=== PATIENT | female | born 1965 | race African-American/Black ===

== ENCOUNTER 2016-12-23 18:12 | Observation (INO) | payer OTHER ==
--- NOTE | 2016-12-23 18:31 | ED ---
Chest Pain HPI - General Stated Complaint: chest pain Time Seen by Provider: 12/23/16 18:26 - History of Present Illness Initial Comments: The patient is a 51-year-old female who presents to ED with a chief complaint of chest pain. Patient states that her symptoms began last night. She states that her pain was located in the left upper chest and radiated up the left side of her neck to the left jaw. Patient states that she has also had pain that radiated down the left shoulder. She states that she took 2 aspirin 325 mg tablets last night. This helped to improve her pain. Patient also took one of her blood pressure medications last night. The patient woke up in the middle of the night secondary to pain. She took another blood pressure medication and went to sleep. This morning, the patient was awoken again by her pain and decided that it was probably time to come to the emergency department for further evaluation. Patient denies any cough, fever, chills. Patient does state that the pain is worse when she takes deep breath. Patient also remarks that she has had pain in the bilateral upper thighs., Particularly in the left upper thighs. Patient has cardiac risk factors of hypertension. Patient has never had any cardiac history in the past. Patient has no history of PE or DVT. She does have an underlying history of sarcoidosis. HEART Score=4 (2 for suspicion, 1 for age, 1 for risk factors). - Related Data Home Medications Medication Instructions Recorded Confirmed ARIPiprazole [Abilify] 15 mg PO DAILY 08/25/15 12/23/16 Multivitamins, Thera [Theragran] 1 tab PO DAILY 08/25/15 12/23/16 amLODIPine BESYLATE [Norvasc] 10 mg PO DAILY 08/25/15 12/23/16 busPIRone HCL 15 mg PO BID 08/25/15 12/23/16 Acetaminophen Tab [Tylenol Tab] 650 mg PO Q6H PRN 12/23/16 12/23/16 Dextroamphetamine/Amphetamine 15 mg PO HS 12/23/16 12/23/16 [Adderall Xr] Allergies Allergy/AdvReac Type Severity Reaction Status Date / Time aspirin Allergy Nausea & Verified 12/23/16 18:45 Vomiting & Diarrhea hydrocodone Allergy Nausea & Verified 12/23/16 18:45 Vomiting, hallucinations Review of Systems ROS Statement: Those systems with pertinent positive or pertinent negative responses have been documented in the HPI. ROS Other: All systems not noted in ROS Statement are negative. Constitutional: Denies: fever, chills, weakness Eyes: Denies: eye pain ENT: Denies: ear pain, throat pain Respiratory: Denies: cough, dyspnea, wheezes, hemoptysis, stridor Cardiovascular: Reports: chest pain, dyspnea on exertion. Denies: palpitations , orthopnea, edema Endocrine: Reports: fatigue Gastrointestinal: Denies: abdominal pain, nausea, vomiting, diarrhea, constipation Genitourinary: Denies: urgency, dysuria, frequency, hematuria Musculoskeletal: Denies: back pain Skin: Denies: rash, lesions Neurological: Denies: headache, weakness Psychiatric: Denies: anxiety, depression EKG Findings - EKG Comments: EKG Findings:: EKG demonstrates NSR. There are no concerning ST-T changes. The LA and QRS intervals are within normal limits. Past Medical History Past Medical History: Hypertension Additional Past Medical History / Comment(s): sarcoidosis History of Any Multi-Drug Resistant Organisms: None Reported Past Surgical History: Section, Hernia Repair, Orthopedic Surgery, Tonsillectomy, Tubal Ligation Additional Past Surgical History / Comment(s): rt carpal tunnel Past Anesthesia/Blood Transfusion Reactions: Family History of Problems w/ Anesthesia Additional Past Anesthesia/Blood Transfusion Reaction / Comment(s): daughter- PONV and long time to come out Past Psychological History: Anxiety, Bipolar Smoking Status: Current every day smoker Past Alcohol Use History: Occasional Past Drug Use History: None Reported - Past Family History Father Family Medical History: Cancer Mother Family Medical History: Cancer General Exam Limitations: no limitations General appearance: alert, in no apparent distress Head exam: Present: atraumatic, normocephalic Eye exam: Present: normal appearance, PERRL, EOMI Pupils: Present: normal accommodation ENT exam: Present: normal exam, normal oropharynx Neck exam: Present: normal inspection Respiratory exam: Present: normal lung sounds bilaterally. Absent: respiratory distress, wheezes, rales, rhonchi, stridor, chest wall tenderness Cardiovascular Exam: Present: regular rate, tachycardia GI/Abdominal exam: Present: soft. Absent: distended, tenderness, guarding, rebound Extremities exam: Present: normal inspection, full ROM, normal capillary refill. Absent: tenderness, pedal edema Back exam: Present: normal inspection, full ROM Neurological exam: Present: alert, altered, oriented X3 Psychiatric exam: Present: normal affect, normal mood Skin exam: Present: warm, dry, intact Course Vital Signs 12/23/16 12/23/16 12/23/16 18:25 19:59 20:38 Temperature 98.5 F Pulse Rate 95 68 64 Respiratory 22 18 18 Rate Blood Pressure 166/87 158/89 176/86 O2 Sat by Pulse 100 100 97 Oximetry 12/23/16 21:48 Temperature 98 F Pulse Rate 68 Respiratory 18 Rate Blood Pressure 143/87 O2 Sat by Pulse 98 Oximetry Chest Pain MDM - MDM Patient is a 51-year-old female who presents to the ED with a chief complaint of chest pain. Patient states the pain is located in the left upper chest and radiates down left arm. Patient states the pain has been present since last night. It has been intermittent in nature. Resolved initially after she took aspirin 325 mg. Patient does have history of sarcoidosis. Patient also complains of pain in the bilateral lower extremities, particularly in the upper thighs. Patient has cardiac risk factors of hypertension. Denies any history of hyperlipidemia or diabetes. Patient has requested that she have a flu swab performed. We'll check chest x-ray, EKG. Troponin 2. D-dimer. Doppler of bilateral lower extremities. HEART Score=4. 9:45 PM Patient states that her chest pain has resolved after receiving NitroPaste. Repeat EKG noted to be NSR without any concerning ST-T changes. Spoke with Paulette Barbosa, who accepts placement of patient into Observation. Disposition Clinical Impression: Chest pain Disposition: ADMITTED IP TO THIS [facility] Condition: Good Time of Disposition: 21:51 Decision to Admit Reason: Admit from EC Decision Date: 12/23/16 Decision Time: 21:51
[2016-12-23] MEDS ORDERED: ONDANSETRON 4 MG/2 ML VIAL IVP STA (18:39)
[2016-12-23] MEDS ORDERED: MORPHINE SULFATE 4 MG/ML SYRINGE IV STA (18:39)
[2016-12-23] MEDS ORDERED: ASPIRIN 81 MG CHEW PO STA (18:39)
[2016-12-23 19:04] LABS: Basophils % (A) 1 %; CH 31.4; Eosinophils # (A) 0.1 k/uL (0-0.7); Eosinophils % (A) 2 %; HCT 41.9 % (34.0-46.0); HDW 2.48; HGB 14.1 gm/dL (11.4-16.0); Luc # (Auto) 0.21; Luc % (Auto) 4; Lymphocytes # (A) 2.2 k/uL (1.0-4.8); Lymphocytes % (A) 40 %; MCH 31.2 pg (25.0-35.0); MCHC 33.6 g/dL (31.0-37.0); MCV 92.9 fL (80.0-100.0); Monocytes # (A) 0.2 k/uL (0-1.0); Monocytes % (A) 4 %; Neutrophils # (A) 2.8 k/uL (1.3-7.7); Neutrophils % (A) 50 %; RBC 4.51 m/uL (3.80-5.40); RDW 12.5 % (11.5-15.5); WBC 5.6 k/uL (3.8-10.6); WBC (Perox) 5.56
[2016-12-23 19:13] LABS: ALT 28 U/L (9-52); AST 19 U/L (14-36); Alkaline Phosphatase 71 U/L (38-126); Anion Gap 10 mmol/L; Blood Urea Nitrogen 16 mg/dL (7-17); Calcium 9.5 mg/dL (8.4-10.2); Carbon Dioxide 25 mmol/L (22-30); Chloride 108 mmol/L (98-107); Glucose 113 mg/dL (74-99); Magnesium 2.1 mg/dL (1.6-2.3); Non-African American GFR(MDRD) >60 (>60 ml/min/1.73 sqM); Sodium 143 mmol/L (137-145); Total Bilirubin 0.5 mg/dL (0.2-1.3); Total Protein 7.6 g/dL (6.3-8.2)
[2016-12-23 19:22] LABS: Creatine Kinase 87 U/L (30-135); Potassium 4.3 mmol/L (3.5-5.1)
[2016-12-23 19:23] LABS: Partial Thromboplastin Time 25.7 sec (22.0-30.0); Prothrombin Time 9.9 sec (9.0-12.0)
--- NOTE | 2016-12-23 19:24 | XR ---
EXAMINATION TYPE: XR chest 2V DATE OF EXAM: 12/23/2016 7:19 PM COMPARISON: NONE HISTORY: Nausea and chest pain TECHNIQUE: Frontal and lateral views of the chest are obtained. FINDINGS: Heart and mediastinum are normal. Lungs are clear. Diaphragm is normal. There are chest le ads. Bony thorax is intact. IMPRESSION: Normal chest
[2016-12-23 19:36] LABS: Creatine Kinase MB <0.2 ng/mL (0.0-2.4); Troponin I <0.012 ng/mL (0.000-0.034)
--- NOTE | 2016-12-23 19:45 | US ---
EXAMINATION TYPE: US venous doppler duplex LE BI DATE OF EXAM: 12/23/2016 7:34 PM COMPARISON: NONE CLINICAL HISTORY: Chest Pain. Leg pain, left worse than right SIDE PERFORMED: Bilateral VESSELS IMAGED: External Iliac Vein (EIV) Common Femoral Vein Deep Femoral Vein Greater Saphenous Vein * Femoral Vein Popliteal Vein Small Saphenous Vein * Proximal Calf Veins (* superficial vessels) Right Leg: Negative for DVT Left Leg: Negative for DVT IMPRESSION: Normal exam. No evidence of deep venous thrombosis in both legs.
[2016-12-23] MEDS ORDERED: NITROGLYCERIN OINT 1 INCH/GM PACKET TOPICAL STA (20:22)
[2016-12-23] MEDS ORDERED: NALOXONE 0.4 MG/ML 1 ML VIAL IV PRN (21:51)
[2016-12-23 23:00] VITALS: RESP 16
[2016-12-23 23:03] VITALS: BMI 25.2
[2016-12-23] MEDS ORDERED: ACETAMINOPHEN TAB 325 MG TAB PO PRN (23:12)
[2016-12-23] MEDS: KETOROLAC 30 MG/ML 1 ML VIAL IVP PRN (23:21)
[2016-12-24 01:17] LABS: Creatine Kinase 70 U/L (30-135)
[2016-12-24 01:29] LABS: Creatine Kinase MB <0.2 ng/mL (0.0-2.4); Troponin I <0.012 ng/mL (0.000-0.034)
[2016-12-24] MEDS: KETOROLAC 30 MG/ML 1 ML VIAL IVP PRN (04:02)
[2016-12-24 08:27] LABS: Basophils % (A) 1 %; CH 31.3; CHCM 33.4; Eosinophils # (A) 0.1 k/uL (0-0.7); Eosinophils % (A) 2 %; HCT 38.7 % (34.0-46.0); HDW 2.44; HGB 12.9 gm/dL (11.4-16.0); Luc # (Auto) 0.15; Luc % (Auto) 3; Lymphocytes # (A) 2.5 k/uL (1.0-4.8); Lymphocytes % (A) 49 %; MCH 31.4 pg (25.0-35.0); MCHC 33.3 g/dL (31.0-37.0); MCV 94.2 fL (80.0-100.0); Mean Platelet Volume 7.2; Monocytes # (A) 0.2 k/uL (0-1.0); Monocytes % (A) 5 %; Neutrophils # (A) 2.1 k/uL (1.3-7.7); Neutrophils % (A) 42 %; RBC 4.11 m/uL (3.80-5.40); RDW 12.6 % (11.5-15.5); WBC 5.1 k/uL (3.8-10.6); WBC (Perox) 5.24
[2016-12-24 08:34] LABS: Anion Gap 9 mmol/L; Blood Urea Nitrogen 16 mg/dL (7-17); Calcium 9.1 mg/dL (8.4-10.2); Carbon Dioxide 20 mmol/L (22-30); Chloride 110 mmol/L (98-107); Glucose 90 mg/dL (74-99); Magnesium 2.1 mg/dL (1.6-2.3); Non-African American GFR(MDRD) >60 (>60 ml/min/1.73 sqM); Potassium 4.6 mmol/L (3.5-5.1); Sodium 139 mmol/L (137-145)
[2016-12-24 08:57] LABS: Creatine Kinase 68 U/L (30-135)
[2016-12-24 09:07] LABS: Creatine Kinase MB <0.2 ng/mL (0.0-2.4); Troponin I <0.012 ng/mL (0.000-0.034)
--- NOTE | 2016-12-24 09:44 | P.CRDCN ---
History of Present Illness Consult date: 12/24/16 Chief complaint: Chest pain History of present illness: This is a pleasant 51-year-old medical female patient with a past medical history significant for sarcoidosis and hypertension presented to the emergency room complaining of chest discomfort. She describes intermittent episodes of atypical chest discomfort where the discomfort as a sharp kind of discomfort in the mid of the chest with some radiation to the neck and seems to be nonexertional in nature. She was ruled out for acute coronary event. The EKG showed sinus rhythm with nonspecific changes. The cardiac enzymes were checked and came in to be unremarkable. I am going to proceed with a stress test to rule out any severe underlying CAD. Past Medical History Past Medical History: Hypertension Additional Past Medical History / Comment(s): sarcoidosis History of Any Multi-Drug Resistant Organisms: None Reported Past Surgical History: Section, Hernia Repair, Orthopedic Surgery, Tonsillectomy, Tubal Ligation Additional Past Surgical History / Comment(s): rt carpal tunnel Past Anesthesia/Blood Transfusion Reactions: Family History of Problems w/ Anesthesia Additional Past Anesthesia/Blood Transfusion Reaction / Comment(s): daughter- PONV and long time to come out Past Psychological History: Anxiety, Bipolar Smoking Status: Current some day smoker Past Alcohol Use History: Occasional Past Drug Use History: None Reported - Past Family History Father Family Medical History: Cancer Additional Family Medical History / Comment(s): Prostate CA Mother Family Medical History: Cancer Additional Family Medical History / Comment(s): breast CA Medications and Allergies Home Medications Medication Instructions Recorded Confirmed Type ARIPiprazole [Abilify] 15 mg PO DAILY 08/25/15 12/23/16 History Multivitamins, Thera [Theragran] 1 tab PO DAILY 08/25/15 12/23/16 History amLODIPine BESYLATE [Norvasc] 10 mg PO DAILY 08/25/15 12/23/16 History busPIRone HCL 15 mg PO BID 08/25/15 12/23/16 History Acetaminophen Tab [Tylenol Tab] 650 mg PO Q6H PRN 12/23/16 12/23/16 History Dextroamphetamine/Amphetamine 15 mg PO HS 12/23/16 12/23/16 History [Adderall Xr] Allergies Allergy/AdvReac Type Severity Reaction Status Date / Time aspirin Allergy Nausea & Verified 12/23/16 22:55 Vomiting & Diarrhea hydrocodone Allergy Nausea & Verified 12/23/16 22:55 Vomiting, hallucinations Physical Exam Vitals: Vital Signs Temp Pulse Resp BP Pulse Ox 12/24/16 07:40 98.2 F 68 16 114/65 97 12/24/16 04:00 98.3 F 63 16 125/67 97 12/23/16 23:26 16 12/23/16 22:59 98.2 F 66 16 157/86 98 Intake and Output 12/23/16 12/24/16 12/24/16 22:59 06:59 14:59 Other: # Voids 1 Weight 66.6 kg - Constitutional General appearance: no acute distress - Respiratory Respiratory: bilateral: CTA - Cardiovascular Rhythm: regular Heart sounds: normal: S1, S2 Abnormal Heart Sounds: systolic murmur Results 12/24/16 07:40 12/24/16 07:40 Cardiac Enzymes 12/24/16 12/24/16 Range/Units 00:22 07:40 CK-MB (CK-2) <0.2 <0.2 (0.0-2.4) ng/mL Troponin I <0.012 <0.012 (0.000-0.034) ng/mL CBC 12/24/16 Range/Units 07:40 WBC 5.1 (3.8-10.6) k/uL RBC 4.11 (3.80-5.40) m/uL Hgb 12.9 (11.4-16.0) gm/dL Hct 38.7 (34.0-46.0) % Plt Count 365 (150-450) k/uL Comprehensive Metabolic Panel 12/24/16 Range/Units 07:40 Sodium 139 (137-145) mmol/L Potassium 4.6 (3.5-5.1) mmol/L Chloride 110 H (98-107) mmol/L Carbon Dioxide 20 L (22-30) mmol/L BUN 16 (7-17) mg/dL Creatinine 0.79 (0.52-1.04) mg/dL Glucose 90 (74-99) mg/dL Calcium 9.1 (8.4-10.2) mg/dL Current Medications Generic Name Dose Route Start Last Admin Trade Name Freq PRN Reason Stop Dose Admin Acetaminophen 650 mg 12/23/16 23:12 Tylenol Tab PO Q4HR PRN Fever and/ or MILD Pain Ketorolac Tromethamine 30 mg 12/23/16 23:12 12/24/16 04:02 Toradol IVP 12/27/16 23:13 30 mg Q6HR PRN Administration MODERATE Pain Naloxone HCl 0.2 mg 12/23/16 21:51 Narcan IV Q2M PRN Opioid Reversal Intake and Output 12/23/16 12/24/16 12/24/16 22:59 06:59 14:59 Other: # Voids 1 Weight 66.6 kg 12/24/16 07:40 12/24/16 07:40 Assessment and Plan Plan: Assessment Intermittent episodes of atypical chest pain History of smoking Hypertension Plan #1 the patient was ruled out for acute coronary event #2 proceeding with a stress test
[2016-12-24 11:31] VITALS: BP 125/64; PULSE 61; TEMP 98.8
--- NOTE | 2016-12-24 13:38 | EST ---
DATE OF SERVICE: 12/24/2016 AGE: 51Y SEX: F HT: 64 WT: 146 lbs. Protocol Jamie: Other: Stage: Dur. of Exercise: 9 minutes *Heart Rate Blood Pressure *Rest: 97 Rest: 187/88 * *Max. Achieved: 146 Maximum BP: 213/87 85% PMHR: 143 100% PMHR: 168 *METS: 9.1 INDICATIONS: Chest pain MEDICATIONS: See list. Baseline rhythm is a sinus mechanism, rate of 91, normal intervals, minor nonspecific changes. Baseline blood pressure 187/88 mmHg. Patient exercised on Jamie protocol for 9 minutes reaching peak rate of 146 beats per minute, which is equal to 87% of maximum predicted heart rate; peak blood pressure 212/91 mmHg. Test was stopped because of fatigue. There was no chest pain. Electrocardiograph monitoring revealed no evidence of diagnostic ischemic ST deviation. FINDINGS: Baseline echocardiogram revealed normal wall motion. At peak exercise there was normal wall motion augmentation with no hypokinesis or dyskinesis. IMPRESSION: 1. Good exercise tolerance with normal electrocardiograph response to exercise. 2. Normal stress echocardiogram with no evidence of stress-induced ischemia.
--- NOTE | 2016-12-24 22:01 | HP ---
DATE OF ADMISSION: 12/23/2016 CHIEF COMPLAINT: Chest pain. HISTORY OF PRESENT ILLNESS: Mitchell Bellamy is a 51-year-old female with known history of hypertension and sarcoidosis, came to the hospital with complaints of for chest pain, midsternal, which has been present since last night, radiating to the left side of the neck and left jaw and also to the left shoulder as well. The patient took two aspirins last night which help improve her pain, but she woke up in the middle of the night due to pain and came to the hospital. Patient did took another aspirin and went into sleep and the patient had this pain again which made her come to the ER. Otherwise, patient denied any complaints of cough or sputum production. No fever. No chills. No recent illness. No history of heart disease in the past. Patient says that apparently patient has been working night shifts and is under stressful situation and has been working 16 hours straight in her work. No history of deep venous thrombosis or PE in the past. Patient does have a history of sarcoidosis. She is not on any prednisone therapy at this time. REVIEW OF SYSTEMS: CONSTITUTIONAL: No fever or chills. RESPIRATORY: No cough or sputum production. CARDIOVASCULAR: Patient does have chest pain. No short of breath. No leg swelling. ABDOMEN: No nausea, vomiting or abdominal pain. GENITOURINARY: Negative. ENDOCRINE: Negative. PSYCHIATRY: Negative. SKIN: Negative. All other fourteen-point review of systems negative except as above. Past medical history includes: 1. Sarcoidosis biopsy-proven. 2. Hypertension. PAST SURGICAL HISTORY: , hernia repair, orthopedic surgery, tonsillectomy, tubal ligation, right carpal tunnel surgery. PSYCHOSOCIAL HISTORY: Anxiety, bipolar disorder. SOCIAL HISTORY: Currently an everyday smoker, smokes about half pack to 1 pack per day. Occasional alcohol use. Denied any drugs or IVDU. FAMILY HISTORY: Father had cancer, mother has cancer./ Home medications include: 1. Abilify. 2. Multivitamins. 3. Amlodipine. 4. Buspirone. 5. Tylenol. 6. Dextroamphetamine/amphetamine. 7. Adderall XL. ALLERGIES: ASPIRIN AND HYDROCODONE. PHYSICAL EXAMINATION: A 51 -year-old female lying in bed comfortably, awake alert and oriented x3 appears to be in no apparent distress. VITALS: Blood pressure is 114/65, pulse is 68, respirations 16, temperature afebrile, pulse ox 97% on room air. HEENT: Atraumatic, normocephalic. Neck is supple: S1, S2 heard. No murmurs or gallop, no rub. LUNGS: Bilateral air entry is present. No wheezing. No crackles. ABDOMEN: Soft, nontender. Bowel sounds present. CENTRAL NERVOUS SYSTEM: Awake, alert and oriented times three. No focal deficits. EXTREMITIES: No edema. Pulses palpable bilaterally. No clubbing or cyanosis. PSYCHIATRIC: Cooperative. LABORATORY DATA: WBC 5.6, hemoglobin 14.1, platelets 395. INR 1.0. D-dimer is 0.35. Sodium 143, potassium 4.3, chloride 108, bicarb is 25. BUN 16, creatinine 0.9. Blood sugar is 113, calcium 2.1, NT-proBNP is 32. Influenza A and B PCR negative. Chest pain normal chest. Lower extremities duplex negative for deep venous thrombosis. EKG normal sinus rhythm. IMPRESSION: 1. Atypical chest pain, will rule out acute coronary syndrome. Chest pain seems more likely due to stress and anxiety. Serial EKGs and troponins are negative. Patient d-dimer is negative and also the lower extremity duplex is also negative for any deep venous thrombosis. 2. Chest pain possibly related due to stressful situation at home and at work. 3. Cigarette smoking. 4. Hypertension. 5. History of sarcoidosis with history of biopsy. The patient was on prednisone before. 6. Deep venous thrombosis prophylaxis. DISCUSSION AND PLAN: 51-year-old female admitted to the hospital with complaints of chest pain most likely anxiety related, will rule out acute coronary syndrome. The patient was seen by cardiology and recommend stress echocardiogram. Otherwise, we will continue the serial EKGs and troponins. Further recommendations based on clinical course.
--- NOTE | 2016-12-25 13:37 | DS ---
DATE OF ADMISSION: 12/23/2016 DATE OF DISCHARGE: 12/24/2016 TEST AND PROCEDURE: Stress echocardiogram. Cardiology consultation. DISCHARGE DIAGNOSES: 1. Atypical chest pain, ruled out acute coronary syndrome, most likely anxiety related and stress. 2. Negative stress echocardiogram. 3. Hypertension. 4. Anxiety. 5. History of bipolar disorder. 6. History of sarcoidosis, not on prednisone now. HOSPITAL COURSE: Ms. Bellamy is a 51-year-old female with known history of multiple medical problems admitted to the hospital with complaint of mid-sternal chest pain and not relieved by aspirin x2. Patient came to the hospital for evaluation. Patient was telemonitored and serial EKGs and troponins are negative. Cardiology has seen the patient and recommended stress echocardiogram. Stress echocardiogram showed low exercise tolerance and normal echocardiograph response to exercise and normal stress echocardiogram with no evidence of stress-induced ischemia. Otherwise, patient is currently chest pain free and recommended to avoid stress at home including prolonged hours. Otherwise, patient is stable to be discharged home. DISCHARGE PHYSICAL EXAMINATION: A 51-year-old female lying in bed comfortably, awake, alert and oriented x3, in no apparent distress. VITALS: Blood pressure is 125/64, pulse is 61, respirations 16, temp afebrile, pulse ox 98% on room air. Laboratory data reviewed. Discharge physical examination done. Discharge medications include: 1. ( ) 15 mg p.o. daily. 2. Multivitamins 1 tablet p.o. daily. 3. Norvasc 10 mg p.o. daily. 4. Buspirone 15 mg p.o. b.i.d. 5. Tylenol 650 mg p.o. q.6 hourly p.r.n. for pain. 6. Adderall XL 15 mg p.o. at bedtime. Patient will be discharged home in stable condition. Activity as tolerated. Heart healthy diet. Follow with primary care physician, Megan Crabtree, in 1 to 2 days. Home with self-care. Follow with Dr. Montoya in three weeks.
== END 2016-12-24 18:20 | disposition home or self-care (01) ==
LOC: EC 18:12 → 3OBS 21:53
PROVIDERS: ADMIT Internal Medicine; ATTEND Internal Medicine
DX: R07.89 Other chest pain (principal); I10 Essential (primary) hypertension; M79.652 Pain in left thigh; M79.651 Pain in right thigh; F41.9 Anxiety disorder, unspecified; F31.9 Bipolar disorder, unspecified; Z79.899 Other long term (current) drug therapy; Z88.6 Allergy status to analgesic agent; Z88.5 Allergy status to narcotic agent; F17.210 Nicotine dependence, cigarettes, uncomplicated; Z80.3 Family history of malignant neoplasm of breast
CPT/HCPCS: 96374; 96375; 99285; 36415; 93005; 93017; 93350; 85379; 83880; 80053; 80048; 82550 ×2; 82553 ×2; 83735 ×2; 84484 ×2; 85025 ×2; 85610; 85730; 87502; 71020; 93970; G0378 ×2; J2270; J2405; J1885 ×2

== ENCOUNTER 2018-07-12 09:54 | Emergency (ER) | payer OTHER ==
[2018-07-12 09:59] VITALS: PULSE 79
--- NOTE | 2018-07-12 10:20 | XR ---
EXAMINATION TYPE: XR hand complete RT DATE OF EXAM: 07/12/2018 COMPARISON: NONE HISTORY: Pain TECHNIQUE: Three views are submitted. FINDINGS: The osseous structures are intact. The joint spaces are preserved and there is no acute fracture or dislocation. There is a small exostosis off the base of the proximal first metacarpal. Hypertrophic c hanges involving the DIP joints of the fourth, third and fifth digits. IMPRESSION: 1. No definite acute fracture or dislocation if symptoms persist, follow-up study in 7 to 10 days wo uld be suggested. 2. There is a small exostosis, or osteochondroma off the base proximal aspect first metacarpal. Bone scan recommended.
--- NOTE | 2018-07-12 10:43 | ED ---
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 Reports pain with range of motion. Patient reports that a few days ago she was walking her dog and the dog pulled her thumb. Patient states that her hand was wrapped around the lesion collar.Patient denies any recent fever, chills, shortness of breath, chest pain, back pain, abdominal pain, nausea vomiting, numbness or tingling, dysuria or hematuria, constipation or diarrhea, headaches or visual changes, or any other current symptoms - Related Data Home Medications Medication Instructions Recorded Confirmed ARIPiprazole [Abilify] 15 mg PO DAILY 08/25/15 07/12/18 Multivitamins, Thera [Theragran] 1 tab PO DAILY 08/25/15 07/12/18 amLODIPine BESYLATE [Norvasc] 10 mg PO DAILY 08/25/15 07/12/18 busPIRone HCL 15 mg PO BID 08/25/15 07/12/18 Acetaminophen Tab [Tylenol Tab] 650 mg PO Q6H PRN 12/23/16 07/12/18 Dextroamphetamine/Amphetamine 15 mg PO HS 12/23/16 07/12/18 [Adderall Xr] Metoprolol Tartrate [Lopressor] 12.5 mg PO BID 07/12/18 07/12/18 Previous Rx's Medication Instructions Recorded Ibuprofen 400 mg PO TID #20 tablet 07/12/18 Allergies Allergy/AdvReac Type Severity Reaction Status Date / Time aspirin Allergy Nausea & Verified 07/12/18 10:47 Vomiting & Diarrhea hydrocodone Allergy Nausea & Verified 07/12/18 10:47 Vomiting, hallucinations ibuprofen [From Motrin] Allergy Unknown Verified 07/12/18 10:47 lorazepam [From Ativan] Allergy Unknown Verified 07/12/18 10:47 tramadol [From Ultram] Allergy Nausea & Verified 07/12/18 10:47 Vomiting morphine AdvReac Vomiting Verified 07/12/18 10:47 Review of Systems ROS Statement: Those systems with pertinent positive or pertinent negative responses have been documented in the HPI. ROS Other: All systems not noted in ROS Statement are negative. Past Medical History Past Medical History: Hypertension Additional Past Medical History / Comment(s): sarcoidosis History of Any Multi-Drug Resistant Organisms: None Reported Past Surgical History: Section, Hernia Repair, Orthopedic Surgery, Tonsillectomy, Tubal Ligation Additional Past Surgical History / Comment(s): rt carpal tunnel Past Anesthesia/Blood Transfusion Reactions: Family History of Problems w/ Anesthesia Additional Past Anesthesia/Blood Transfusion Reaction / Comment(s): daughter- PONV and long time to come out Past Psychological History: Anxiety, Bipolar Smoking Status: Current some day smoker Past Alcohol Use History: Occasional Past Drug Use History: None Reported - Past Family History Father Family Medical History: Cancer Additional Family Medical History / Comment(s): Prostate CA Mother Family Medical History: Cancer Additional Family Medical History / Comment(s): breast CA General Exam - General Exam Comments Initial Comments: All appearing 52-year-old female. Alert and oriented. No acute distress. Limitations: no limitations General appearance: alert, in no apparent distress Head exam: Present: atraumatic, normocephalic, normal inspection Eye exam: Present: normal appearance, PERRL, EOMI. Absent: scleral icterus, conjunctival injection, periorbital swelling ENT exam: Present: normal exam, mucous membranes moist Extremities exam: Present: normal inspection, full ROM, normal capillary refill. Absent: tenderness, pedal edema, joint swelling, calf tenderness Right Elbow exam: Present: normal inspection, full ROM Forearm Wrist exam: Present: normal inspection, full ROM Hand Wrist exam: Present: normal inspection, full ROM, tenderness (Is tenderness over the DIP of the first digit joint.) Neuro motor exam: Present: wrist extension intact, thumb opposition intact, thumb IP flexion intact, thumb adduction intact, fingers 2-5 abduction intact Vascular: Present: normal capillary refill Back exam: Present: normal inspection Neurological exam: Present: alert, oriented X3, CN II-XII intact Course Vital Signs 07/12/18 07/12/18 09:57 10:59 Temperature 98.3 F 97.8 F Pulse Rate 79 79 Respiratory 18 16 Rate Blood Pressure 157/91 138/70 O2 Sat by Pulse 98 99 Oximetry Procedures - Orthopedic Splinting/Casting Injury #1 Side: right Upper Extremity Injury Location: finger (Thumb) Upper Extremity Immobilizer: Stuart wrap Medical Decision Making - Medical Decision Making Patient is a 52-year-old female complains of pain over the DIP of the first right digit. Patient reports that a few days ago she was walking her dog and the dog pulled her lesion collar. Patient has full range motion of the thumb. Patient at this time had an x-ray. There is any evidence of osteochondroma for the proximal area of the thumb. Likely arthritic changes. Recommended bone scan. I discussed this with the Patient she can follow-up with orthopedic. Patient no evidence of acute fracture dislocation. I did put the Patient in the Stuart wrap for relief of her symptoms. I discussed anti-inflammatory medication. Patient agrees to treatment plan will comply. - Radiology Data Radiology results: report reviewed Acute fracture dislocation of symptoms as follow up in 7-10 days. Small exit ptosis also become of the base of the first metacarpal. Bone scan recommended. Disposition Clinical Impression: Sprain of right thumb Disposition: HOME SELF-CARE Condition: Good Instructions: Hand Sprain (ED) Additional Instructions: Follow-up with orthopedic if symptoms continue to persist. Return to the emergency department if any alarming signs or symptoms occur. Prescriptions: Ibuprofen 400 mg PO TID #20 tablet Is patient prescribed a controlled substance at d/c from ED?: No Referrals: Tonya Ghosh MD [Primary Care Provider] - 1-2 days Harinder Weaver MD [STAFF PHYSICIAN] - 1-2 days Time of Disposition: 10:41
[2018-07-12 11:04] VITALS: BP 138/70; RESP 16; TEMP 97.8
== END 2018-07-12 10:59 | disposition home or self-care (01) ==
LOC: EC 09:54
DX: S63.601A Unspecified sprain of right thumb, initial encounter (principal); I10 Essential (primary) hypertension; F41.9 Anxiety disorder, unspecified; F31.9 Bipolar disorder, unspecified; F17.200 Nicotine dependence, unspecified, uncomplicated; Z98.51 Tubal ligation status; Z98.890 Other specified postprocedural states; Z79.899 Other long term (current) drug therapy; Z88.5 Allergy status to narcotic agent; Z88.6 Allergy status to analgesic agent; Z88.8 Allergy status to other drugs, medicaments and biological substances; X50.1XXA Overexertion from prolonged static or awkward postures, initial encounter; Y93.K1 Activity, walking an animal
CPT/HCPCS: 99283

== ENCOUNTER 2018-08-15 18:24 | Emergency (ER) | payer OTHER ==
[2018-08-15 18:34] VITALS: RESP 18
[2018-08-15] MEDS ORDERED: FAMOTIDINE 20 MG/2 ML VIAL IV STA (20:25)
[2018-08-15] MEDS ORDERED: LORATADINE 10 MG TAB PO STA (20:25)
--- NOTE | 2018-08-15 21:43 | ED ---
Skin/Abscess/FB HPI - General Chief complaint: Skin/Abscess/Foreign Body Stated complaint: spider bite Time Seen by Provider: 08/15/18 20:00 Source: patient Mode of arrival: ambulatory Limitations: no limitations - History of Present Illness Initial comments: 53-year-old female patient with past medical history significant for sarcoidosis presents to the emergency department today for evaluation of pain, swelling, itching, and burning to the right side of her neck. Patient states 2 days ago she was outside changing her porch light when she felt a tingling in her neck and then a sharp pain. Patient believed she was bit by a spider. Patient states that she has had itching and burning to the area however today she started to have increased pain and swelling to the side of her neck. Patient states that she saw general malaise and ill. Patient states she did see her primary care physician who is concerned she may be developing an infection and wanted her to have IV antibiotics in the emergency department. Patient denies any fever or chills. He denies any shortness of breath or difficulty swallowing. States that she has applied hydrocortisone cream and aloe vera without relief of symptoms. Patient states she did receive an IM injection of Depo-Medrol at her doctor's office. Patient denies any recent rash , shortness breath, chest pain, abdominal pain, nausea, vomiting, diarrhea, constipation, back pain, numbness, tingling, dizziness, weakness, hematuria, dysuria, urinary urgency, urinary frequency, headache, visual changes, or any other complaints. - Related Data Home Medications Medication Instructions Recorded Confirmed ARIPiprazole [Abilify] 15 mg PO DAILY 08/25/15 08/15/18 amLODIPine BESYLATE [Norvasc] 10 mg PO DAILY 08/25/15 08/15/18 Dextroamphetamine/Amphetamine 15 mg PO DAILY 12/23/16 08/15/18 [Adderall Xr] Baclofen 10 mg PO TID 08/15/18 08/15/18 Estrogens, Conjugated Cream 1 applicator VAGINAL MOWE 08/15/18 08/15/18 [Premarin Cream] Gabapentin 600 mg PO TID 08/15/18 08/15/18 Metoprolol Tartrate [Lopressor] 12.5 mg PO BID 08/15/18 08/15/18 Nicotine 7Mg/24Hr Patch [Habitrol 1 patch TRANSDERM DAILY 08/15/18 08/15/18 7Mg/24Hr Patch] clonazePAM [KlonoPIN] 0.5 mg PO HS 08/15/18 08/15/18 Previous Rx's Medication Instructions Recorded Cephalexin [Keflex] 500 mg PO Q6H #40 cap 08/15/18 Allergies Allergy/AdvReac Type Severity Reaction Status Date / Time aspirin Allergy Nausea & Verified 08/15/18 20:12 Vomiting & Diarrhea hydrocodone Allergy Nausea & Verified 08/15/18 20:12 Vomiting, hallucinations ibuprofen [From Motrin] Allergy Unknown Verified 08/15/18 20:12 lorazepam [From Ativan] Allergy Unknown Verified 08/15/18 20:12 tramadol [From Ultram] Allergy Nausea & Verified 08/15/18 20:12 Vomiting morphine AdvReac Vomiting Verified 08/15/18 20:12 Review of Systems ROS Statement: Those systems with pertinent positive or pertinent negative responses have been documented in the HPI. ROS Other: All systems not noted in ROS Statement are negative. Past Medical History Past Medical History: Hypertension Additional Past Medical History / Comment(s): sarcoidosis History of Any Multi-Drug Resistant Organisms: None Reported Past Surgical History: Section, Hernia Repair, Orthopedic Surgery, Tonsillectomy, Tubal Ligation Additional Past Surgical History / Comment(s): rt carpal tunnel Past Anesthesia/Blood Transfusion Reactions: Family History of Problems w/ Anesthesia Additional Past Anesthesia/Blood Transfusion Reaction / Comment(s): daughter- PONV and long time to come out Past Psychological History: Anxiety, Bipolar Smoking Status: Current every day smoker Past Alcohol Use History: Occasional Past Drug Use History: None Reported - Past Family History Father Family Medical History: Cancer Additional Family Medical History / Comment(s): Prostate CA Mother Family Medical History: Cancer Additional Family Medical History / Comment(s): breast CA General Exam Limitations: no limitations General appearance: alert, in no apparent distress, other (This is a well- developed, well-nourished adult female patient in no acute distress. Vital signs upon presentation are temperature 97.6F, pulse 103, respirations 18, blood pressure 200/109, pulse ox 100% on room air.) Eye exam: Present: normal appearance, PERRL, EOMI. Absent: scleral icterus, conjunctival injection, periorbital swelling ENT exam: Present: normal exam, normal oropharynx, mucous membranes moist Neck exam: Present: other (2 wheals noted to the right side of the neck, right sided cervical lymphadenopathy. Lesions are non-vesicular, non-petechial. No drainage. ). Absent: normal inspection, tenderness, meningismus, lymphadenopathy Respiratory exam: Present: normal lung sounds bilaterally. Absent: respiratory distress, wheezes, rales, rhonchi, stridor Cardiovascular Exam: Present: regular rate, normal rhythm, normal heart sounds. Absent: systolic murmur, diastolic murmur, rubs, gallop, clicks GI/Abdominal exam: Present: soft, normal bowel sounds. Absent: distended, tenderness, guarding, rebound, rigid Neurological exam: Present: alert, oriented X3, CN II-XII intact Psychiatric exam: Present: normal affect, normal mood Skin exam: Present: warm, dry, intact, normal color. Absent: rash Course Vital Signs 08/15/18 08/15/18 18:27 20:09 Temperature 97.6 F Pulse Rate 103 H 92 Respiratory 18 18 Rate Blood Pressure 200/109 163/93 O2 Sat by Pulse 100 98 Oximetry Medical Decision Making - Medical Decision Making 53-year-old female patient presented to the emergency department today for evaluation of insect bite, pain, and swelling to the right side of her neck. Physical examination did reveal 2 wheals with mild surrounding erythema and right-sided neck swelling. There is right-sided cervical lymphadenopathy. Labs reviewed and are unremarkable. Patient was given IV Pepcid, oral Claritin , and IV Rocephin here in the department. Upon reevaluation she is feeling somewhat better. States the itching has decreased. She'll be started on Keflex for possible cellulitis. She is instructed to follow-up with her primary care physician for recheck in 1-2 days. Return immediately for any new , worsening, or concerning symptoms. She verbalizes understanding and agrees with this plan. - Lab Data Result diagrams: 08/15/18 21:46 08/15/18 21:46 Lab Results 08/15/18 08/15/18 Range/Units 21:46 21:46 WBC 5.2 (3.8-10.6) k/uL RBC 4.90 (3.80-5.40) m/uL Hgb 15.0 (11.4-16.0) gm/dL Hct 45.0 (34.0-46.0) % MCV 91.9 (80.0-100.0) fL MCH 30.6 (25.0-35.0) pg MCHC 33.2 (31.0-37.0) g/dL RDW 13.2 (11.5-15.5) % Plt Count 343 (150-450) k/uL Neutrophils % 57 % Lymphocytes % 36 % Monocytes % 3 % Eosinophils % 2 % Basophils % 0 % Neutrophils # 3.0 (1.3-7.7) k/uL Lymphocytes # 1.9 (1.0-4.8) k/uL Monocytes # 0.2 (0-1.0) k/uL Eosinophils # 0.1 (0-0.7) k/uL Basophils # 0.0 (0-0.2) k/uL Sodium 141 (137-145) mmol/L Potassium 5.9 H (3.5-5.1) mmol/L Chloride 108 H (98-107) mmol/L Carbon Dioxide 21 L (22-30) mmol/L Anion Gap 12 mmol/L BUN 5 L (7-17) mg/dL Creatinine 0.75 (0.52-1.04) mg/dL Est GFR (CKD-EPI)AfAm >90 (>60 ml/min/1.73 sqM) Est GFR (CKD-EPI)NonAf >90 (>60 ml/min/1.73 sqM) Glucose 104 H (74-99) mg/dL Calcium 9.4 (8.4-10.2) mg/dL Total Bilirubin 1.2 (0.2-1.3) mg/dL AST 43 H (14-36) U/L ALT 23 (9-52) U/L Alkaline Phosphatase 84 (38-126) U/L Total Protein 8.6 H (6.3-8.2) g/dL Albumin 4.9 (3.5-5.0) g/dL Disposition Clinical Impression: Bug bites, Cellulitis Disposition: HOME SELF-CARE Condition: Good Instructions: Cellulitis (ED), Insect Bite or Sting (ED) Additional Instructions: Complete antibiotic prescription in full. Follow up with your primary care physician for recheck in 1-2 days. Return immediately for any new, worsening, or concerning symptoms. Prescriptions: Cephalexin [Keflex] 500 mg PO Q6H #40 cap Is patient prescribed a controlled substance at d/c from ED?: No Referrals: Tonya Ghosh MD [Primary Care Provider] - 1-2 days Time of Disposition: 23:15
[2018-08-15 22:09] LABS: Basophils % (A) 0 %; Eosinophils # (A) 0.1 k/uL (0-0.7); Eosinophils % (A) 2 %; Lymphocytes # (A) 1.9 k/uL (1.0-4.8); Lymphocytes % (A) 36 %; MCH 30.6 pg (25.0-35.0); MCHC 33.2 g/dL (31.0-37.0); MCV 91.9 fL (80.0-100.0); Mean Platelet Volume 6.8; Monocytes # (A) 0.2 k/uL (0-1.0); Monocytes % (A) 3 %; Neutrophils % (A) 57 %; Platelet Count 343 k/uL (150-450); RDW 13.2 % (11.5-15.5); WBC 5.2 k/uL (3.8-10.6)
[2018-08-15 22:40] LABS: ALT 23 U/L (9-52); AST 43 U/L (14-36); Albumin 4.9 g/dL (3.5-5.0); Alkaline Phosphatase 84 U/L (38-126); Anion Gap 12 mmol/L; Blood Urea Nitrogen 5 mg/dL (7-17); Calcium 9.4 mg/dL (8.4-10.2); Carbon Dioxide 21 mmol/L (22-30); Chloride 108 mmol/L (98-107); Glucose 104 mg/dL (74-99); Sodium 141 mmol/L (137-145); Total Bilirubin 1.2 mg/dL (0.2-1.3); Total Protein 8.6 g/dL (6.3-8.2)
[2018-08-15 22:42] LABS: Potassium 5.9 mmol/L (3.5-5.1)
[2018-08-16 00:07] VITALS: BP 179/98; PULSE 85; TEMP 97.7
== END 2018-08-15 23:40 | disposition home or self-care (01) ==
LOC: EC 18:24
DX: L03.221 Cellulitis of neck (principal); I10 Essential (primary) hypertension; F31.9 Bipolar disorder, unspecified; F41.9 Anxiety disorder, unspecified; F17.200 Nicotine dependence, unspecified, uncomplicated; Z88.5 Allergy status to narcotic agent; Z88.6 Allergy status to analgesic agent; Z88.8 Allergy status to other drugs, medicaments and biological substances; Z79.899 Other long term (current) drug therapy; W57.XXXA Bitten or stung by nonvenomous insect and other nonvenomous arthropods, initial encounter
CPT/HCPCS: 36415; 80053; 85025; 87040; 99283; 96365; 96375; J0696

== ENCOUNTER 2021-03-04 17:11 | Emergency (ER) | payer OTHER ==
[2021-03-04 17:26] VITALS: TEMP 98.7
[2021-03-04] MEDS ORDERED: ONDANSETRON 4 MG/2 ML VIAL IVP STA (18:47)
[2021-03-04] MEDS ORDERED: SODIUM CHLORIDE 0.9% 1,000 ML IV STA ×2 (18:47→19:59)
[2021-03-04] MEDS ORDERED: PANTOPRAZOLE 40 MG/10 ML VIAL IVP STA (18:47)
[2021-03-04] MEDS ORDERED: HYDROmorphone 1 MG/ML 1 ML SYRINGE IVP STA (18:47)
[2021-03-04 19:05] LABS: Basophils % (A) 1 %; Eosinophils # (A) 0.1 k/uL (0-0.7); Eosinophils % (A) 3 %; HCT 49.2 % (34.0-46.0); HGB 16.5 gm/dL (11.4-16.0); Lymphocytes # (A) 0.8 k/uL (1.0-4.8); Lymphocytes % (A) 15 %; MCHC 33.5 g/dL (31.0-37.0); MCV 89.6 fL (80.0-100.0); Mean Platelet Volume 7.5; Monocytes # (A) 0.2 k/uL (0-1.0); Monocytes % (A) 4 %; Neutrophils # (A) 4.1 k/uL (1.3-7.7); Neutrophils % (A) 77 %; Platelet Count 298 k/uL (150-450); RDW 13.4 % (11.5-15.5); WBC 5.3 k/uL (3.8-10.6)
[2021-03-04 19:10] LABS: Albumin 4.3 g/dL (3.5-5.0); Calcium 9.4 mg/dL (8.4-10.2); Magnesium 1.7 mg/dL (1.6-2.3); Potassium 4.8 mmol/L (3.5-5.1); Total Bilirubin 0.9 mg/dL (0.2-1.3); Total Protein 7.6 g/dL (6.3-8.2)
--- NOTE | 2021-03-04 19:33 | CT ---
EXAMINATION TYPE: CT abdomen pelvis w con DATE OF EXAM: 03/04/2021 COMPARISON: NONE HISTORY: 55-year-old female epigastric pain, nausea, vomiting TECHNIQUE: Contiguous axial scanning of the abdomen and pelvis following administration of 100 ml Iso antonino 300 IV contrast. Delayed images through the kidneys and coronal/sagittal reconstructions perform ed. CT DLP: 881.3 mGycm Automated exposure control for dose reduction was used. FINDINGS: Heart normal size without pericardial effusion. Lung bases clear with some mosaic attenuation that co uld reflect airways disease. No focal liver lesion or biliary ductal dilatation. Portal venous system is patent. Gallbladder, adrenal glands, kidneys, spleen with a few anterior splenule, and pancreas appear within normal limits. There is excessive fold and mural-based thickening along the body of the stomach and possible annular narrowing, refer to axial image 17 through 20. Prominent ingested material within the fundus of the stomach. No dilated small bowel, free fluid, or free air. Some scattered retroperitoneal lymph nodes are prese nt especially along the aortocaval region measuring up to 7 mm, these are borderline enlarged. No mes enteric lymphadenopathy seen. Some prominent fluid-filled small bowel loops in the mid and lower abdomen. Normal appendix. Moderate stool burden. Left-sided colonic diverticulosis. No pericolonic inflammatory change. Bladder incompletely distended. Uterus anteverted with both ovaries visualized. Multiple pelvic phleb oliths. No abnormal fluid collection in the pelvis or pelvic lymphadenopathy. Bones: Moderate degenerative change of the hips. Hypertrophic facet arthropathy mid to lower lumbar s pine with moderate degenerative disc disease L5-S1. IMPRESSION: 1. EXCESSIVE FOLD THICKENING WITH SOME MURAL-BASED THICKENING AND POSSIBLE ANNULAR NARROWING ALONG TH E BODY OF THE STOMACH. CONSIDER SEVERE GASTRITIS OR UNDERLYING NEOPLASM. DIRECT VISUALIZATION TO FURT HER EVALUATE. 2. A FEW BORDERLINE TO MILDLY ENLARGED RETROPERITONEAL LYMPH NODES MEASURING UP TO 7 MM ARE PROBABLY REACTIVE. REASSESS AT A 3-6 MONTH FOLLOW-UP CT. 3. ASCENDING COLONIC DIVERTICULOSIS WITHOUT ACUTE DIVERTICULITIS.
--- NOTE | 2021-03-04 19:35 | ED ---
GI Bleed HPI - General Chief complaint: GI Bleed Stated complaint: vomiting, fever Time Seen by Provider: 03/04/21 18:34 Source: patient, RN notes reviewed Mode of arrival: ambulatory Limitations: no limitations - History of Present Illness Initial comments: Patient is a 55-year-old female that presents to emergency department complaining of abdominal pain with nausea and vomiting 5 days. She notes that she's tried taking Pepcid and some Pepto-Bismol. She notes that after taking Pepto-Bismol she noted that she's had several small black stools. She noted that every time she eats or drinks anything it comes right back up. She denied having any hematemesis. She was in no apparent distress or pain while sitting up in bed during the exam interview. She noted that her abdominal discomfort was approximately a 8 out of 10. She denied any chest pain short of breath headache diarrhea constipation fever fatigue chills hematochezia, melena. - Related Data Home Medications Medication Instructions Recorded Confirmed amLODIPine BESYLATE [Norvasc] 10 mg PO DAILY 08/25/15 03/04/21 Dextroamphetamine/Amphetamine 15 mg PO DAILY 12/23/16 03/04/21 [Adderall Xr] Baclofen 10 mg PO TID 08/15/18 03/04/21 Gabapentin 600 mg PO TID 08/15/18 03/04/21 Atomoxetine HCl [Strattera] 80 mg PO DAILY 03/04/21 03/04/21 DULoxetine HCL [Cymbalta] 60 mg PO BID 03/04/21 03/04/21 Ergocalciferol (Vitamin D2) 1,250 mcg PO WE 03/04/21 03/04/21 [Drisdol (50,000 Iu)] Estrogen,Con/M-Progest Acet 1 tab PO DAILY 03/04/21 03/04/21 [Prempro 0.3 mg-1.5 mg Tablet] Famotidine [Pepcid] 20 mg PO BID 03/04/21 03/04/21 Lisinopril [Zestril] 10 mg PO BID 03/04/21 03/04/21 Lurasidone [Latuda] 80 mg PO HS 03/04/21 03/04/21 Meloxicam 15 mg PO DAILY 03/04/21 03/04/21 Nicotine 14Mg/24Hr Patch [Habitrol 1 patch TRANSDERM DAILY PRN 03/04/21 03/04/21 14Mg/24Hr Patch] clonazePAM [KlonoPIN] 1 mg PO HS 03/04/21 03/04/21 Previous Rx's Medication Instructions Recorded Ondansetron HCl [Zofran] 4 mg PO Q8H PRN 7 Days #21 tab 03/04/21 metFORMIN HCL [Glucophage] 500 mg PO BID #14 tab 03/04/21 Allergies Allergy/AdvReac Type Severity Reaction Status Date / Time aspirin Allergy Nausea & Verified 03/04/21 20:24 Vomiting & Diarrhea hydrocodone Allergy Nausea & Verified 03/04/21 20:24 Vomiting, hallucinations ibuprofen [From Motrin] Allergy Unknown Verified 03/04/21 20:24 lorazepam [From Ativan] Allergy Unknown Verified 03/04/21 20:24 tramadol [From Ultram] Allergy Nausea & Verified 03/04/21 20:24 Vomiting morphine AdvReac Vomiting Verified 03/04/21 20:24 Review of Systems ROS Statement: Those systems with pertinent positive or pertinent negative responses have been documented in the HPI. ROS Other: All systems not noted in ROS Statement are negative. Past Medical History Past Medical History: Hypertension Additional Past Medical History / Comment(s): sarcoidosis History of Any Multi-Drug Resistant Organisms: None Reported Past Surgical History: Section, Hernia Repair, Orthopedic Surgery, Tonsillectomy, Tubal Ligation Additional Past Surgical History / Comment(s): rt carpal tunnel Past Anesthesia/Blood Transfusion Reactions: Family History of Problems w/ Anesthesia Additional Past Anesthesia/Blood Transfusion Reaction / Comment(s): daughter- PONV and long time to come out Past Psychological History: Anxiety, Bipolar Smoking Status: Current some day smoker Past Alcohol Use History: None Reported Past Drug Use History: None Reported - Past Family History Father Family Medical History: Cancer Additional Family Medical History / Comment(s): Prostate CA Mother Family Medical History: Cancer Additional Family Medical History / Comment(s): breast CA General Exam Limitations: no limitations General appearance: alert, in no apparent distress Head exam: Present: atraumatic, normocephalic, normal inspection Eye exam: Present: normal appearance, PERRL, EOMI. Absent: scleral icterus, conjunctival injection, periorbital swelling Neck exam: Present: normal inspection Respiratory exam: Present: normal lung sounds bilaterally. Absent: respiratory distress, wheezes, rales, rhonchi, stridor Cardiovascular Exam: Present: regular rate, normal rhythm, normal heart sounds. Absent: systolic murmur, diastolic murmur, rubs, gallop, clicks GI/Abdominal exam: Present: soft, tenderness (Left upper quadrant), normal bowel sounds. Absent: distended, guarding, rebound, rigid Extremities exam: Present: normal inspection, full ROM, normal capillary refill. Absent: tenderness, pedal edema, joint swelling, calf tenderness Neurological exam: Present: alert, oriented X3, CN II-XII intact Psychiatric exam: Present: normal affect, normal mood Skin exam: Present: warm, dry, intact, normal color. Absent: rash Course Vital Signs 03/04/21 03/04/21 17:23 20:44 Temperature 98.7 F Pulse Rate 111 H 96 Respiratory 18 16 Rate Blood Pressure 149/85 133/71 O2 Sat by Pulse 100 98 Oximetry Medical Decision Making - Medical Decision Making 55 she'll female complaining of abdominal pain with nausea and vomiting for 5 days. Labs, 1 L normal saline, 1 mg of Dilaudid, 4 mg Zofran, 40 mg of Protonix, CT of the abdomen and pelvis, occult blood test ordered. Labs: Blood glucose 403, rest unremarkable. Accu-Chek blood glucose reading ordered to recheck sugar after [address] of the abdomen pelvis shows moderate to severe gastritis. 1 more liter of normal saline, 1000 mg of Tylenol ordered for pain control. Upon Accu-Chek blood sugar is 282. Patient states she will follow with a primary care as soon as possible to get evaluated for diabetes. Case discussed with Dr. Mosley, patient can discharge home with follow-up to primary care. - Lab Data Result diagrams: 03/04/21 18:51 03/04/21 18:51 Lab Results 03/04/21 03/04/21 03/04/21 Range/Units 18:51 18:51 18:51 WBC 5.3 (3.8-10.6) k/uL RBC 5.50 H (3.80-5.40) m/uL Hgb 16.5 H (11.4-16.0) gm/dL Hct 49.2 H (34.0-46.0) % MCV 89.6 (80.0-100.0) fL MCH 30.0 (25.0-35.0) pg MCHC 33.5 (31.0-37.0) g/dL RDW 13.4 (11.5-15.5) % Plt Count 298 (150-450) k/uL MPV 7.5 Neutrophils % 77 % Lymphocytes % 15 % Monocytes % 4 % Eosinophils % 3 % Basophils % 1 % Neutrophils # 4.1 (1.3-7.7) k/uL Lymphocytes # 0.8 L (1.0-4.8) k/uL Monocytes # 0.2 (0-1.0) k/uL Eosinophils # 0.1 (0-0.7) k/uL Basophils # 0.0 (0-0.2) k/uL APTT 20.6 L (22.0-30.0) sec Sodium 135 L (137-145) mmol/L Potassium 4.8 (3.5-5.1) mmol/L Chloride 100 (98-107) mmol/L Carbon Dioxide 17 L (22-30) mmol/L Anion Gap 18 mmol/L BUN 10 (7-17) mg/dL Creatinine 0.85 (0.52-1.04) mg/dL Est GFR (CKD-EPI)AfAm 89 (>60 ml/min/1.73 sqM) Est GFR (CKD-EPI)NonAf 77 (>60 ml/min/1.73 sqM) Glucose 403 H (74-99) mg/dL POC Glucose (mg/dL) (75-99) mg/dL POC Glu Clerical Secretary ID Calcium 9.4 (8.4-10.2) mg/dL Magnesium 1.7 (1.6-2.3) mg/dL Total Bilirubin 0.9 (0.2-1.3) mg/dL AST 27 (14-36) U/L ALT 23 (4-34) U/L Alkaline Phosphatase 160 H (38-126) U/L Troponin I (0.000-0.034) ng/mL Total Protein 7.6 (6.3-8.2) g/dL Albumin 4.3 (3.5-5.0) g/dL Lipase 101 (23-300) U/L Stool Occult Blood (Negative) 03/04/21 03/04/21 03/04/21 Range/Units 18:51 18:51 21:17 WBC (3.8-10.6) k/uL RBC (3.80-5.40) m/uL Hgb (11.4-16.0) gm/dL Hct (34.0-46.0) % MCV (80.0-100.0) fL MCH (25.0-35.0) pg MCHC (31.0-37.0) g/dL RDW (11.5-15.5) % Plt Count (150-450) k/uL MPV Neutrophils % % Lymphocytes % % Monocytes % % Eosinophils % % Basophils % % Neutrophils # (1.3-7.7) k/uL Lymphocytes # (1.0-4.8) k/uL Monocytes # (0-1.0) k/uL Eosinophils # (0-0.7) k/uL Basophils # (0-0.2) k/uL APTT (22.0-30.0) sec Sodium (137-145) mmol/L Potassium (3.5-5.1) mmol/L Chloride (98-107) mmol/L Carbon Dioxide (22-30) mmol/L Anion Gap mmol/L BUN (7-17) mg/dL Creatinine (0.52-1.04) mg/dL Est GFR (CKD-EPI)AfAm (>60 ml/min/1.73 sqM) Est GFR (CKD-EPI)NonAf (>60 ml/min/1.73 sqM) Glucose (74-99) mg/dL POC Glucose (mg/dL) 282 H (75-99) mg/dL POC Glu Clerical Secretary ID Tyree Sinhg Calcium (8.4-10.2) mg/dL Magnesium (1.6-2.3) mg/dL Total Bilirubin (0.2-1.3) mg/dL AST (14-36) U/L ALT (4-34) U/L Alkaline Phosphatase (38-126) U/L Troponin I 0.022 (0.000-0.034) ng/mL Total Protein (6.3-8.2) g/dL Albumin (3.5-5.0) g/dL Lipase (23-300) U/L Stool Occult Blood Negative (Negative) - Radiology Data Radiology results: report reviewed, image reviewed CT of the abdomen and pelvis: Excessive fold thickening with [id number] based thickening and possible annular narrowing along the body of the stomach. Consider severe gastritis or underlying neoplasm. Tract visualization to [facility] er evaluate. A few borderline to mild enlarged retroperitoneal lymph nodes measuring up to 7 mm a probable reactive. Reassess at a 6 month follow-up CT. Ascending colonic diverticulosis without diverticulitis. Disposition Clinical Impression: Gastritis, Blood glucose elevated Disposition: HOME SELF-CARE Condition: Stable Instructions (If sedation given, give patient instructions): Gastritis (ED) Additional Instructions: Please return to the Emergency Department if symptoms worsen or any other concerns. Follow-up with primary care as soon as possible. Take metformin as prescribed. Increase oral fluids and eat food as tolerated. Take Zofran as prescribed. Prescriptions: metFORMIN HCL [Glucophage] 500 mg PO BID #14 tab Ondansetron HCl [Zofran] 4 mg PO Q8H PRN 7 Days #21 tab PRN Reason: Nausea And Vomiting Is patient prescribed a controlled substance at d/c from ED?: No Referrals: Tonya Ghosh MD [Primary Care Provider] - 1-2 days Time of Disposition: 21:23
[2021-03-04] MEDS ORDERED: ACETAMINOPHEN TAB 500 MG TAB PO STA (19:59)
[2021-03-04 20:45] VITALS: BP 133/71; PULSE 96; RESP 16
[2021-03-04 21:19] LABS: Glucose,Whole Blood 282 mg/dL (75-99)
[2021-03-04 21:56] LABS: Glucose,Whole Blood 287 mg/dL (75-99)
== END 2021-03-04 21:59 | disposition home or self-care (01) ==
LOC: EC 17:11
DX: K29.70 Gastritis, unspecified, without bleeding (principal); R73.9 Hyperglycemia, unspecified; K57.30 Diverticulosis of large intestine without perforation or abscess without bleeding; R59.0 Localized enlarged lymph nodes; F17.200 Nicotine dependence, unspecified, uncomplicated; I10 Essential (primary) hypertension; Z79.899 Other long term (current) drug therapy; Z88.6 Allergy status to analgesic agent; Z88.5 Allergy status to narcotic agent; Z88.8 Allergy status to other drugs, medicaments and biological substances
CPT/HCPCS: 99284 ×2; 36415; 80053; 83690; 83735; 84484; 85025; 85730; 82272; 74177; 96374; 96375; 96361; J2405; J1170; C9113; Q9967

== ENCOUNTER 2024-11-03 08:53 | Emergency (ER) | payer MEDICARE, OTHER ==
--- NOTE | 2024-11-03 09:30 | ED ---
Nausea/Vomiting/Diarrhea HPI - General Chief complaint: Nausea/Vomiting/Diarrhea Stated complaint: Diarrhea,abd pain,headache Time Seen by Provider: 11/03/24 09:07 Source: patient, RN notes reviewed Mode of arrival: ambulatory Limitations: no limitations - History of Present Illness Initial comments: This is a 59-year-old female who presents to the emergency department for URI symptoms, nausea, vomiting, and diarrhea. States that over the last couple of days she has been sick with coughing and congestion. Reports some pain in her chest from all of the coughing. She has been around family members who were recently diagnosed with pneumonia. Yesterday she started to develop diarrhea with nausea and vomiting. States that she was at a and is unsure if it was from the food. Reports generalized abdominal cramping. MD complaint: nausea, vomiting, diarrhea, abdominal pain - Related Data Home Medications Medication Instructions Recorded Confirmed amLODIPine BESYLATE [Norvasc] 10 mg PO DAILY 08/25/15 03/04/21 Dextroamphetamine/Amphetamine 15 mg PO DAILY 12/23/16 03/04/21 [Adderall Xr] Baclofen 10 mg PO TID 08/15/18 03/04/21 Gabapentin 600 mg PO TID 08/15/18 03/04/21 Atomoxetine HCl [Strattera] 80 mg PO DAILY 03/04/21 03/04/21 DULoxetine HCL [Cymbalta] 60 mg PO BID 03/04/21 03/04/21 Ergocalciferol (Vitamin D2) 1,250 mcg PO WE 03/04/21 03/04/21 [Drisdol (50,000 Iu)] Estrogen,Con/M-Progest Acet 1 tab PO DAILY 03/04/21 03/04/21 [Prempro 0.3 mg-1.5 mg Tablet] Famotidine [Pepcid] 20 mg PO BID 03/04/21 03/04/21 Lurasidone [Latuda] 80 mg PO HS 03/04/21 03/04/21 Meloxicam 15 mg PO DAILY 03/04/21 03/04/21 Nicotine 14Mg/24Hr Patch [Habitrol 1 patch TRANSDERM DAILY PRN 03/04/21 03/04/21 14Mg/24Hr Patch] clonazePAM [KlonoPIN] 1 mg PO HS 03/04/21 03/04/21 lisinopriL [Zestril] 10 mg PO BID 03/04/21 03/04/21 Previous Rx's Medication Instructions Recorded metFORMIN HCL [Glucophage] 500 mg PO BID #14 tab 03/04/21 ondansetron HCL [Zofran] 4 mg PO Q8H PRN 7 Days #21 tab 03/04/21 Dicyclomine [Bentyl] 20 mg PO QID PRN #30 tablet 11/03/24 Ondansetron Odt [Zofran Odt] 4 mg PO Q8HR PRN #20 tab 11/03/24 Allergies Allergy/AdvReac Type Severity Reaction Status Date / Time aspirin Allergy Nausea & Verified 03/04/21 20:24 Vomiting & Diarrhea hydrocodone Allergy Nausea & Verified 03/04/21 20:24 Vomiting, hallucinations ibuprofen [From Motrin] Allergy Unknown Verified 03/04/21 20:24 lorazepam [From Ativan] Allergy Unknown Verified 03/04/21 20:24 tramadol [From Ultram] Allergy Nausea & Verified 03/04/21 20:24 Vomiting morphine AdvReac Vomiting Verified 03/04/21 20:24 Review of Systems ROS Statement: Those systems with pertinent positive or pertinent negative responses have been documented in the HPI. ROS Other: All systems not noted in ROS Statement are negative. Past Medical History Past Medical History: Hypertension Additional Past Medical History / Comment(s): sarcoidosis History of Any Multi-Drug Resistant Organisms: None Reported Past Surgical History: Section, Hernia Repair, Orthopedic Surgery, Tonsillectomy, Tubal Ligation Additional Past Surgical History / Comment(s): rt carpal tunnel Past Anesthesia/Blood Transfusion Reactions: Family History of Problems w/ Anesthesia Additional Past Anesthesia/Blood Transfusion Reaction / Comment(s): daughter- PONV and long time to come out Past Psychological History: Anxiety, Bipolar Smoking Status: Current some day smoker Past Alcohol Use History: None Reported Past Drug Use History: None Reported - Past Family History Father Family Medical History: Cancer Additional Family Medical History / Comment(s): Prostate CA Mother Family Medical History: Cancer Additional Family Medical History / Comment(s): breast CA General Exam Limitations: no limitations General appearance: alert, in no apparent distress Head exam: Present: atraumatic, normocephalic, normal inspection Respiratory exam: Present: normal lung sounds bilaterally. Absent: respiratory distress, wheezes, rales, rhonchi, stridor Cardiovascular Exam: Present: regular rate, normal rhythm, normal heart sounds. Absent: systolic murmur, diastolic murmur, rubs, gallop, clicks GI/Abdominal exam: Present: soft. Absent: distended, tenderness Neurological exam: Present: alert, oriented X3, CN II-XII intact Psychiatric exam: Present: normal affect, normal mood Skin exam: Present: warm, dry, intact, normal color. Absent: rash Course Vital Signs 11/03/24 09:02 Temperature 98.4 F Pulse Rate 94 Respiratory 22 Rate Blood Pressure 189/73 O2 Sat by Pulse 99 Oximetry Medical Decision Making - Medical Decision Making This is a 59-year-old female who presents to the emergency department for coughing, nausea, vomiting, and diarrhea. Was pt. sent in by a medical professional or institution? @ -No Did you speak to anyone other than the patient for history? @ -No Did you review nursing and triage notes? @ -Yes, and I agree, it is accurate with regards to the patient's symptoms. Were old charts reviewed? @ -No Differential Diagnosis? @ -Differential Cough: Influenza, Covid, RSV, croup, allergic rhinitis, GERD, pneumonia, bronchitis, COPD, viral pharyngitis, streptococcal pharyngitis, this is not meant to be an all-inclusive list. EKG interpreted by me (3pts min.)? @ -EKG interpreted by me demonstrating the following: Sinus rhythm. Ventricular rate 79 bpm, AL interval 149 ms, QRS duration 94 ms, QTc 409 ms. X-rays interpreted by me (1pt min.)? @ -Chest x-ray obtained, my interpretation identifies no localized consolidations or infiltrates. CT interpreted by me (1pt min.)? @ -Not obtained U/S interpreted by me (1pt. min.)? @ -Not obtained What testing was considered but not performed? (CT, X-rays, U/S, labs)? Why? @ -None What meds were considered but not given? Why? @ -None Did you discuss the management of the patient with other professionals? @ -No Did you reconcile home meds? @ -No Was smoking cessation discussed for >3mins.? @ -I discussed smoking cessation for greater than 3 minutes. The risk of smoking were discussed with the patient including but not limited to risks of cancer, stroke, coronary artery disease and COPD. Also discussed with patient were multiple methods of quitting smoking. Lastly we discussed the financial cost of smoking. Was critical care preformed (if so, how long)? @ -No Were there social determinants of health that impacted care today? How? (Homelessness, low income, unemployed, alcoholism, drug addiction, transportation, low edu. Level, literacy, decrease access to med. care, long-term, rehab)? @ -No Was there de-escalation of care discussed even if they declined? (Discuss DNR or withdrawal of care, Hospice)? @ -No What co-morbidities impacted this encounter? (DM, HTN, Smoking, COPD, CAD, Cancer, CVA, Hep., AIDS, mental health diagnosis, sleep apnea, morbid obesity)? @ -Smoking, HTN Was patient admitted / discharged? @ -Discharged. Lab work unremarkable. COVID, influenza, and RSV testing negative. Urinalysis negative for signs of infection. C. difficile test negative. Chest x-ray reveals no acute process. Symptoms were well-controlled in the emergency department and she was tolerating oral intake. Advised that symptoms are likely viral in nature. Prescription for Bentyl and Zofran provided. Advised she slowly advance her diet as tolerated and remain well- hydrated. Patient discharged home in stable condition. Case discussed with ED attending Dr. Byrne. Return precautions reviewed in depth, the patient is instructed to return to the emergency department with any new, worsening, or concerning symptoms. Patient verbalized understanding. Undiagnosed new problem with uncertain prognosis? @ -None Drug Therapy requiring intensive monitoring for toxicity (Heparin, Nitro, Insulin, Cardizem)? @ -None Were any procedures done? @ -None Diagnosis/symptom? @ -Gastroenteritis Acute, or Chronic, or Acute on Chronic? @ -Acute Uncomplicated (without systemic symptoms) or Complicated (systemic symptoms)? @ -Uncomplicated Side effects of treatment? @ -None Exacerbation, Progression, or Severe Exacerbation] @ -Not applicable Poses a threat to life or bodily function? @ -No - Lab Data Result diagrams: 11/03/24 09:34 11/03/24 09:34 Lab Results 11/03/24 11/03/24 11/03/24 Range/Units 09:26 09:34 09:34 WBC 6.9 (3.8-10.6) k/uL RBC 4.48 (3.80-5.40) m/uL Hgb 13.4 (11.4-16.0) gm/dL Hct 40.8 (34.0-46.0) % MCV 91.2 (80.0-100.0) fL MCH 30.0 (25.0-35.0) pg MCHC 32.9 (31.0-37.0) g/dL RDW 13.1 (11.5-15.5) % Plt Count 471 H (150-450) k/uL MPV 6.4 Neutrophils % 52 % Lymphocytes % 41 % Monocytes % 3 % Eosinophils % 2 % Basophils % 1 % Neutrophils # 3.5 (1.3-7.7) k/uL Lymphocytes # 2.8 (1.0-4.8) k/uL Monocytes # 0.2 (0-1.0) k/uL Eosinophils # 0.1 (0-0.7) k/uL Basophils # 0.1 (0-0.2) k/uL Sodium (137-145) mmol/L Potassium (3.5-5.1) mmol/L Chloride (98-107) mmol/L Carbon Dioxide (22-30) mmol/L Anion Gap mmol/L BUN (7-17) mg/dL Creatinine (0.52-1.04) mg/dL Est GFR (CKD-EPI)AfAm (>60 ml/min/1.73 sqM) Est GFR (CKD-EPI)NonAf (>60 ml/min/1.73 sqM) Glucose (74-99) mg/dL Plasma Lactic Acid Den (0.7-2.0) mmol/L Calcium (8.4-10.2) mg/dL Magnesium (1.6-2.3) mg/dL Total Bilirubin (0.2-1.3) mg/dL AST (14-36) U/L ALT (4-34) U/L Alkaline Phosphatase (38-126) U/L Total Protein (6.3-8.2) g/dL Albumin (3.5-5.0) g/dL Urine Color Light Yellow Urine Appearance Clear (Clear) Urine pH 5.5 (5.0-8.0) Ur Specific [place] 1.013 (1.001-1.035) Urine Protein Negative (Negative) Urine Glucose (UA) Negative (Negative) Urine Ketones Negative (Negative) Urine Blood Negative (Negative) Urine Nitrite Negative (Negative) Urine Bilirubin Negative (Negative) Urine Urobilinogen <2.0 (<2.0) mg/dL Ur Leukocyte Esterase Negative (Negative) C. difficile (EIA) Intrp (Negative) Influenza Type A (PCR) Not Detected (Not Detectd) Influenza Type B (PCR) Not Detected (Not Detectd) RSV (PCR) Not Detected (Not Detectd) SARS-CoV-2 (PCR) Not Detected (Not Detectd) 11/03/24 11/03/24 11/03/24 Range/Units 09:34 09:34 09:34 WBC (3.8-10.6) k/uL RBC (3.80-5.40) m/uL Hgb (11.4-16.0) gm/dL Hct (34.0-46.0) % MCV (80.0-100.0) fL MCH (25.0-35.0) pg MCHC (31.0-37.0) g/dL RDW (11.5-15.5) % Plt Count (150-450) k/uL MPV Neutrophils % % Lymphocytes % % Monocytes % % Eosinophils % % Basophils % % Neutrophils # (1.3-7.7) k/uL Lymphocytes # (1.0-4.8) k/uL Monocytes # (0-1.0) k/uL Eosinophils # (0-0.7) k/uL Basophils # (0-0.2) k/uL Sodium 137 (137-145) mmol/L Potassium 5.0 (3.5-5.1) mmol/L Chloride 104 (98-107) mmol/L Carbon Dioxide 24 (22-30) mmol/L Anion Gap 9 mmol/L BUN 14 (7-17) mg/dL Creatinine 0.81 (0.52-1.04) mg/dL Est GFR (CKD-EPI)AfAm >90 (>60 ml/min/1.73 sqM) Est GFR (CKD-EPI)NonAf 80 (>60 ml/min/1.73 sqM) Glucose 85 (74-99) mg/dL Plasma Lactic Acid Den 2.6 H* (0.7-2.0) mmol/L Calcium 9.8 (8.4-10.2) mg/dL Magnesium 1.9 (1.6-2.3) mg/dL Total Bilirubin 0.6 (0.2-1.3) mg/dL AST 19 (14-36) U/L ALT 12 (4-34) U/L Alkaline Phosphatase 110 (38-126) U/L Total Protein 8.0 (6.3-8.2) g/dL Albumin 4.8 (3.5-5.0) g/dL Urine Color Urine Appearance (Clear) Urine pH (5.0-8.0) Ur Specific [place] (1.001-1.035) Urine Protein (Negative) Urine Glucose (UA) (Negative) Urine Ketones (Negative) Urine Blood (Negative) Urine Nitrite (Negative) Urine Bilirubin (Negative) Urine Urobilinogen (<2.0) mg/dL Ur Leukocyte Esterase (Negative) C. difficile (EIA) Intrp Negative (Negative) Influenza Type A (PCR) (Not Detectd) Influenza Type B (PCR) (Not Detectd) RSV (PCR) (Not Detectd) SARS-CoV-2 (PCR) (Not Detectd) - Radiology Data Radiology results: report reviewed, image reviewed Disposition Clinical Impression: Gastroenteritis, Nicotine dependence Disposition: HOME SELF-CARE Instructions (If sedation given, give patient instructions): Acute Nausea and Vomiting (ED), Acute Diarrhea (ED) Additional Instructions: Return to the emergency department with any new, worsening, or concerning symptoms. Take the Bentyl up to 4 times daily. This will help with abdominal cramping and the diarrhea. The Lomotil you were sent home with will also help with diarrhea. Take the Zofran up to every 8 hours as needed for nausea and vomiting. Slowly advance your diet as tolerated and remain well-hydrated. Follow up with your primary care provider in 1-2 days. Prescriptions: Dicyclomine [Bentyl] 20 mg PO QID PRN #30 tablet PRN Reason: Gi Upset Ondansetron Odt [Zofran Odt] 4 mg PO Q8HR PRN #20 tab PRN Reason: Nausea And Vomiting Is patient prescribed a controlled substance at d/c from ED?: No Referrals: Douglas Peñaloza MD [Primary Care Provider] - 1-2 days Time of Disposition: 11:09
[2024-11-03] MEDS: DIPHENOX-ATROP 2.5-0.025 MG 1 EACH TAB PO STA (09:48)
[2024-11-03] MEDS: DICYCLOMINE 10 MG/ML 2 ML AMP IM STA (09:48)
[2024-11-03] MEDS: SODIUM CHLORIDE 0.9% 1,000 ML IV STA (09:50)
[2024-11-03] MEDS: KETOROLAC 15 MG/ML 1 ML VIAL IVP STA (09:50)
[2024-11-03 09:51] LABS: Basophils # (A) 0.1 k/uL (0-0.2); Basophils % (A) 1 %; Eosinophils # (A) 0.1 k/uL (0-0.7); Eosinophils % (A) 2 %; HCT 40.8 % (34.0-46.0); HGB 13.4 gm/dL (11.4-16.0); Lymphocytes # (A) 2.8 k/uL (1.0-4.8); Lymphocytes % (A) 41 %; MCHC 32.9 g/dL (31.0-37.0); MCV 91.2 fL (80.0-100.0); Mean Platelet Volume 6.4; Monocytes # (A) 0.2 k/uL (0-1.0); Monocytes % (A) 3 %; Neutrophils # (A) 3.5 k/uL (1.3-7.7); Neutrophils % (A) 52 %; Platelet Count 471 k/uL (150-450); RBC 4.48 m/uL (3.80-5.40); RDW 13.1 % (11.5-15.5); WBC 6.9 k/uL (3.8-10.6)
[2024-11-03] MEDS: ONDANSETRON 4 MG/2 ML VIAL IVP STA (09:51)
[2024-11-03 09:54] LABS: Appearance,Urine Clear (Clear); Bilirubin,Urine Negative (Negative); Blood,Urine Negative (Negative); Color,Urine Light Yellow; Glucose,Urine (UA) Negative (Negative); Ketones,Urine Negative (Negative); Leukocyte Esterase,Urine Negative (Negative); Nitrite,Urine Negative (Negative); PH, Urine 5.5 (5.0-8.0); Protein,Urine Negative (Negative); Specific Gravity,Urine 1.013 (1.001-1.035); Urobilinogen,Urine <2.0 mg/dL (<2.0)
[2024-11-03 10:05] LABS: ALT 12 U/L (4-34); AST 19 U/L (14-36); African American GFR (CKD) >90 (>60 ml/min/1.73 sqM); Albumin 4.8 g/dL (3.5-5.0); Alkaline Phosphatase 110 U/L (38-126); Anion Gap 9 mmol/L; Blood Urea Nitrogen 14 mg/dL (7-17); Calcium 9.8 mg/dL (8.4-10.2); Carbon Dioxide 24 mmol/L (22-30); Chloride 104 mmol/L (98-107); Glucose 85 mg/dL (74-99); Magnesium 1.9 mg/dL (1.6-2.3); Non-African American GFR(CKD) 80 (>60 ml/min/1.73 sqM); Sodium 137 mmol/L (137-145); Total Bilirubin 0.6 mg/dL (0.2-1.3)
[2024-11-03 10:06] LABS: Influenza A Not Detected (Not Detectd); Influenza B Not Detected (Not Detectd); RSV Not Detected (Not Detectd)
--- NOTE | 2024-11-03 10:11 | XR ---
EXAMINATION TYPE: XR chest 2V DATE OF EXAM: 11/03/2024 10:02 AM COMPARISON: Chest radiographs from 12/23/2016 TECHNIQUE: XR chest 2V Frontal and lateral views of the chest. CLINICAL INDICATION:Female, 59 years old with history of Cough; FINDINGS: Lungs/Pleura: There is no evidence of pleural effusion, focal consolidation, or pneumothorax. Pulmonary vascularity: Unremarkable. Heart/mediastinum: Cardiomediastinal silhouette is unremarkable. Musculoskeletal: No acute osseous pathology. IMPRESSION: No acute cardiopulmonary disease/process. [facility], , 11/03/2024 10:08 AM
[2024-11-03] MEDS: DIPHENOX-ATROP STARTER PACK 8 TAB BTL PO STA (11:14)
[2024-11-03] MEDS: ONDANSETRON 4 MG ODT STARTER PACK 2 TAB BTL PO STA (11:14)
[2024-11-03 11:28] VITALS: BP 131/71; PULSE 71; RESP 18; TEMP 98.1
== END 2024-11-03 14:12 | disposition home or self-care (01) ==
LOC: EC 08:53
DX: K52.9 Noninfective gastroenteritis and colitis, unspecified (principal); I10 Essential (primary) hypertension; F17.200 Nicotine dependence, unspecified, uncomplicated; Z88.6 Allergy status to analgesic agent; Z88.5 Allergy status to narcotic agent; Z88.8 Allergy status to other drugs, medicaments and biological substances
CPT/HCPCS: 36415; 93005; 80053; 83605; 83735; 85025; 81003; 87324; 87636; 71046; 99284; 96374; 96375; 96361; 96372; J0500; J2405; J1885; S0119

== ENCOUNTER 2025-03-10 08:42 | Emergency (ER) | payer MEDICARE, OTHER ==
--- NOTE | 2025-03-10 08:54 | ED ---
Eye Problem HPI - General Chief complaint: Eye Problems Stated complaint: Left eye issue Time Seen by Provider: 03/10/25 08:47 Source: patient, RN notes reviewed Mode of arrival: ambulatory Limitations: no limitations - History of Present Illness Initial comments: This is a 59-year-old female who presents to the emergency department for left eye pain, redness, and itching. States that it started when she woke up this morning. She did use a new mascara yesterday and is unsure if that may be the cause. States that her eye was matted shut with crusting of the lids. Describes it as both painful, itchy, and burning. She has some difficulty with her vision as well. Denies any headaches, nausea, or vomiting. - Related Data Home Medications Medication Instructions Recorded Confirmed amLODIPine BESYLATE [Norvasc] 10 mg PO DAILY 08/25/15 03/04/21 Dextroamphetamine/Amphetamine 15 mg PO DAILY 12/23/16 03/04/21 [Adderall Xr] Baclofen 10 mg PO TID 08/15/18 03/04/21 Gabapentin 600 mg PO TID 08/15/18 03/04/21 Atomoxetine HCl [Strattera] 80 mg PO DAILY 03/04/21 03/04/21 DULoxetine HCL [Cymbalta] 60 mg PO BID 03/04/21 03/04/21 Ergocalciferol (Vitamin D2) 1,250 mcg PO WE 03/04/21 03/04/21 [Drisdol (50,000 Iu)] Estrogen,Con/M-Progest Acet 1 tab PO DAILY 03/04/21 03/04/21 [Prempro 0.3 mg-1.5 mg Tablet] Famotidine [Pepcid] 20 mg PO BID 03/04/21 03/04/21 Lurasidone [Latuda] 80 mg PO HS 03/04/21 03/04/21 Meloxicam 15 mg PO DAILY 03/04/21 03/04/21 Nicotine 14Mg/24Hr Patch [Habitrol 1 patch TRANSDERM DAILY PRN 03/04/21 03/04/21 14Mg/24Hr Patch] clonazePAM [KlonoPIN] 1 mg PO HS 03/04/21 03/04/21 lisinopriL [Zestril] 10 mg PO BID 03/04/21 03/04/21 Previous Rx's Medication Instructions Recorded metFORMIN HCL [Glucophage] 500 mg PO BID #14 tab 03/04/21 ondansetron HCL [Zofran] 4 mg PO Q8H PRN 7 Days #21 tab 03/04/21 Dicyclomine [Bentyl] 20 mg PO QID PRN #30 tablet 11/03/24 Ondansetron Odt [Zofran Odt] 4 mg PO Q8HR PRN #20 tab 11/03/24 Loratadine [Claritin] 10 mg PO DAILY #15 tab 03/10/25 Allergies Allergy/AdvReac Type Severity Reaction Status Date / Time aspirin Allergy Nausea & Verified 03/04/21 20:24 Vomiting & Diarrhea hydrocodone Allergy Nausea & Verified 03/04/21 20:24 Vomiting, hallucinations ibuprofen [From Motrin] Allergy Unknown Verified 03/04/21 20:24 lorazepam [From Ativan] Allergy Unknown Verified 03/04/21 20:24 tramadol [From Ultram] Allergy Nausea & Verified 03/04/21 20:24 Vomiting morphine AdvReac Vomiting Verified 03/04/21 20:24 Review of Systems ROS Statement: Those systems with pertinent positive or pertinent negative responses have been documented in the HPI. ROS Other: All systems not noted in ROS Statement are negative. Past Medical History Past Medical History: Diabetes Mellitus, Hypertension Additional Past Medical History / Comment(s): sarcoidosis History of Any Multi-Drug Resistant Organisms: None Reported Past Surgical History: Section, Hernia Repair, Orthopedic Surgery, Tonsillectomy, Tubal Ligation Additional Past Surgical History / Comment(s): rt carpal tunnel Past Anesthesia/Blood Transfusion Reactions: Family History of Problems w/ Anesthesia Additional Past Anesthesia/Blood Transfusion Reaction / Comment(s): daughter- PONV and long time to come out Past Psychological History: Anxiety, Bipolar Smoking Status: Former smoker Past Alcohol Use History: None Reported Past Drug Use History: None Reported - Past Family History Father Family Medical History: Cancer Additional Family Medical History / Comment(s): Prostate CA Mother Family Medical History: Cancer Additional Family Medical History / Comment(s): breast CA General Exam Limitations: no limitations General appearance: alert, in no apparent distress Head exam: Present: atraumatic, normocephalic, normal inspection Eye exam: Present: PERRL, EOMI, other (Left conjunctival injection with tearing and crusting of the lashes). Absent: periorbital swelling, periorbital tenderness Expanded IOP (R) in mmH IOP (L) in mmH IOP measured with: Tonopen Respiratory exam: Present: normal lung sounds bilaterally. Absent: respiratory distress, wheezes, rales, rhonchi, stridor Cardiovascular Exam: Present: regular rate, normal rhythm Neurological exam: Present: alert, oriented X3, CN II-XII intact Psychiatric exam: Present: normal affect, normal mood Course Vital Signs 03/10/25 03/10/25 08:44 09:08 Temperature 97.7 F 98.1 F Pulse Rate 80 74 Respiratory 16 18 Rate Blood Pressure 161/75 146/68 O2 Sat by Pulse 100 99 Oximetry Medical Decision Making - Medical Decision Making This is a 59-year-old female who presents to the emergency department for left eye pain and redness. Was pt. sent in by a medical professional or institution? @ -No Did you speak to anyone other than the patient for history? @ -No Did you review nursing and triage notes? @ -Yes, and I agree, it is accurate with regards to the patient's symptoms. Were old charts reviewed? @ -No Differential Diagnosis? @ -Differential Eye Pain: Conjuncitivitis (viral, bacterial, allergic), corneal abrasion, foreign body, iritis, uveitis, keratitis, acute angle closure glaucoma, this is not meant to be an all-inclusive list. EKG interpreted by me (3pts min.)? @ -Not obtained X-rays interpreted by me (1pt min.)? @ -Not obtained CT interpreted by me (1pt min.)? @ -Not obtained U/S interpreted by me (1pt. min.)? @ -Not obtained What testing was considered but not performed? (CT, X-rays, U/S, labs)? Why? @ -None What meds were considered but not given? Why? @ -None Did you discuss the management of the patient with other professionals? @ -No Did you reconcile home meds? @ -No Was smoking cessation discussed for >3mins.? @ -I discussed smoking cessation for greater than 3 minutes. The risk of smoking were discussed with the patient including but not limited to risks of cancer, stroke, coronary artery disease and COPD. Also discussed with patient were multiple methods of quitting smoking. Lastly we discussed the financial cost of smoking. Was critical care preformed (if so, how long)? @ -No Were there social determinants of health that impacted care today? How? (Homelessness, low income, unemployed, alcoholism, drug addiction, transportation, low edu. Level, literacy, decrease access to med. care, [facility], rehab)? @ -No Was there de-escalation of care discussed even if they declined? (Discuss DNR or withdrawal of care, Hospice)? @ -No What co-morbidities impacted this encounter? (DM, HTN, Smoking, COPD, CAD, Cancer, CVA, Hep., AIDS, mental health diagnosis, sleep apnea, morbid obesity)? @ -Smoking, DM Was patient admitted / discharged? @ -Discharged. Physical examination suggestive of conjunctivitis. Intraocular pressure within normal limits. She was sent home with ciprofloxacin eyedrops for further management of infection. Given that it was also itchy, I advised an antihistamine like Claritin as well. Claritin was provided in the emergency department and it was prescribed. We also discussed using compresses. Patient discharged home in stable condition and advised follow-up with her PCP. Case discussed with ED attending Dr. Vargas. Return precautions reviewed in depth, the patient is instructed to return to the emergency department with any new, worsening, or concerning symptoms. Patient verbalized understanding. Undiagnosed new problem with uncertain prognosis? @ -None Drug Therapy requiring intensive monitoring for toxicity (Heparin, Nitro, Insulin, Cardizem)? @ -None Were any procedures done? @ -None Diagnosis/symptom? @ -Conjunctivitis Acute, or Chronic, or Acute on Chronic? @ -Acute Uncomplicated (without systemic symptoms) or Complicated (systemic symptoms)? @ -Uncomplicated Side effects of treatment? @ -None Exacerbation, Progression, or Severe Exacerbation] @ -Not applicable Poses a threat to life or bodily function? @ -No Disposition Clinical Impression: Conjunctivitis, Nicotine dependence Disposition: HOME SELF-CARE Instructions (If sedation given, give patient instructions): Conjunctivitis (ED) Additional Instructions: Return to the emergency department with any new, worsening, or concerning symptoms. Use the ciprofloxacin eyedrops provided as 1 to 2 drops every 2 hours while awake for 2 days, followed by 4 times daily for 5 days. Take the Claritin daily. Continue to apply warm or cool compresses. Follow up with your primary care provider in 1-2 days. Prescriptions: Loratadine [Claritin] 10 mg PO DAILY #15 tab Is patient prescribed a controlled substance at d/c from ED?: No Referrals: Lianet Peñaloza MD [Primary Care Provider] - 1-2 days Time of Disposition: 08:54
[2025-03-10] MEDS: PROPARACAINE 0.5% OPHTH DROPS 15 ML BTL LEFT EYE STA (09:00)
[2025-03-10] MEDS: LORATADINE-PSEUDOEPH 5-120 MG 1 EACH TAB.ER.12H PO STA (09:04)
[2025-03-10] MEDS: CIPROFLOXACIN 0.3% OPHTH SOLN 5 ML BTL LEFT EYE STA (09:04)
[2025-03-10 09:14] VITALS: BP 146/68; PULSE 74; RESP 18; TEMP 98.1
== END 2025-03-10 09:51 | disposition home or self-care (01) ==
LOC: EC 08:42
DX: H10.9 Unspecified conjunctivitis (principal); E11.9 Type 2 diabetes mellitus without complications; F17.200 Nicotine dependence, unspecified, uncomplicated
CPT/HCPCS: 99283